=== PATIENT | male | born 1995 | race Caucasian/White ===

== ENCOUNTER 2019-07-27 18:08 | Emergency (ER) | payer MEDICAID ==
[~2019-07-27] VITALS: Ht 190.5 cm; Wt 159.1 kg
[2019-07-27 18:14] VITALS: BP 125/71; TEMP 98.4
[2019-07-27 19:23] VITALS: PULSE 92
== END 2019-07-27 19:25 | disposition home or self-care (01) ==
LOC: COL.ER 18:08
DX: S62.396A Other fracture of fifth metacarpal bone, right hand, initial encounter for closed fracture (principal); J45.909 Unspecified asthma, uncomplicated; F17.210 Nicotine dependence, cigarettes, uncomplicated; W22.8XXA Striking against or struck by other objects, initial encounter; Y92.009 Unspecified place in unspecified non-institutional (private) residence as the place of occurrence of the external cause
CPT/HCPCS: Q4021

== ENCOUNTER 2020-09-19 21:36 | Emergency (ER) | payer SELFPAY ==
[~2020-09-19] VITALS: Ht 190.5 cm; Wt 159.1 kg
[2020-09-19 21:43] VITALS: BP 142/85; TEMP 97.9
[2020-09-20 00:15] VITALS: PULSE 95
== END 2020-09-20 00:15 | disposition home or self-care (01) ==
LOC: COL.ER 21:36
DX: S20.20XA Contusion of thorax, unspecified, initial encounter (principal); S80.01XA Contusion of right knee, initial encounter; Z88.1 Allergy status to other antibiotic agents; Z88.2 Allergy status to sulfonamides; Z88.8 Allergy status to other drugs, medicaments and biological substances; W01.198A Fall on same level from slipping, tripping and stumbling with subsequent striking against other object, initial encounter; Y92.481 Parking lot as the place of occurrence of the external cause
CPT/HCPCS: J1885

== ENCOUNTER → 2023-10-27 | Outpatient (CLI) | payer OTHER | LOC: COL.CARD 08:07 | DX: Z02.1 Encounter for pre-employment examination (principal) ==